=== PATIENT | female | born 1985 | race African-American/Black ===

== ENCOUNTER 2016-09-07 08:53 | Inpatient (IN) ==
[2016-09-07] MEDS ORDERED: ONDANSETRON 4 MG/2 ML VIAL IV PRN ×2 (09:39→13:15)
[2016-09-07] MEDS ORDERED: BUTORPHANOL 2 MG/ML VIAL IV PRN (09:39)
[2016-09-07 10:05] LABS: Basophils % 0.3 % (0.0-0.8); Eosinophils % 0.4 % (0.00-10.9); Hematocrit 33.3 VOL% (35.7-47.0); Hemoglobin 11.7 GM/DL (12.0-16.0); Immature Granulocytes % 1.6 %; Immature Granulocytes Absolute 0.16 #; Lymphocytes # 1.4 10*3/uL (1.4-4.0); Lymphocytes % 14.2 % (21.3-54.2); Mean Corpuscular HGB Conc 35.1 GM/DL (32-36); Mean Corpuscular Hemoglobin 33 PG (27-34); Mean Corpuscular Volume 92.5 FL (87-102); Mean Platelet Volume 10.7 FL (9.6-12.0); Monocytes # 0.6 10*3/uL (0.11-0.8); Monocytes % 6.2 % (1.7-12.7); Neutrophils # 7.7 10*3/uL (1.4-7.4); Neutrophils % 77.3 % (38.7-73.9); Platelet Count 128 T/CUMM (130-400); Red Cell Distribution Width 12.7 % (9.3-17.3)
[2016-09-07] MEDS ORDERED: diphenhydrAMINE 50 MG/1 ML VIAL IV PRN ×2 (10:08)
[2016-09-07] MEDS ORDERED: FAMOTIDINE 20 MG/2 ML VIAL IV ONE (10:08)
[2016-09-07] MEDS ORDERED: CITRIC ACID/SODIUM CITRATE 30 ML UDCUP PO ONE (10:08)
[2016-09-07] MEDS ORDERED: LACTATED RINGERS 1,000 ML IV ONE (10:08)
[2016-09-07] MEDS ORDERED: ONDANSETRON 4 MG/2 ML VIAL IV ONE (10:08)
[2016-09-07] MEDS ORDERED: hydrOXYzine HCL 25 MG/1 ML VIAL IM PRN (10:08)
[2016-09-07] MEDS ORDERED: PROMETHAZINE 25 MG/1 ML VIAL IM ONE (10:08)
[2016-09-07] MEDS ORDERED: ePHEDrine 50 MG/ML AMP IV PRN (10:08)
[2016-09-07 10:13] LABS: Apearance,Urine CLOUDY (Clear); Bacteria,Urine Occasional /HPF (Few); Bilirubin,Urine Negative (Negative); Blood, Urine Small mg/dL (Negative); Glucose,Urine (UA) Negative (Negative); Ketones,Urine 20 mg/dL (Negative); Mucus,Urine Occasional /LPF (Occasional); Nitrite,Urine Negative (Negative); Protein,Urine 30 MG/DL; RBC,Urine 7 /HPF (0-4); Squamous Epithelial Cell,Urine Few /HPF (0-10); Urine Color Yellow (Yellow); Urine Specific Gravity 1.019 (1.001-1.035); Urine Urobilinogen < 2.0 EU/DL (0.2-1.0); WBC,Urine 11 /HPF (0-6)
[2016-09-07] MEDS ORDERED: DEXTROSE 5% LACTATED RINGERS 1,000 ML IV PRN (10:14)
[2016-09-07] MEDS ORDERED: LACTATED RINGERS 1,000 ML IV PRN (10:15)
[2016-09-07] MEDS ORDERED: AMPICILLIN INJ 2,000 MG in SODIUM CHLORIDE 0.9% 100 ML IV SCH (10:30)
[2016-09-07 10:44] LABS: Albumin 2.7 G/DL (3.4-5.0); Osmolality,Calculated 276.7 MOS/KG (273-304); Potassium 3.4 MMOL/L (3.5-5.1); Total Protein 6.2 G/DL (6.4-8.3); Uric Acid 2.3 MG/DL (2.6-6.0)
[2016-09-07] MEDS ORDERED: OXYTOCIN/LR 20 UNIT/1,000 ML BAG IV ONE ×2 (12:30→13:15)
[2016-09-07 12:33] LABS: Bilirubin,Total 0.5 MG/DL (0.2-1.0)
[2016-09-07] MEDS ORDERED: WITCH HAZEL PADS 100/JAR TOP PRN (13:15)
[2016-09-07] MEDS ORDERED: BISACODYL 10 MG SUPP RECTAL PRN (13:15)
[2016-09-07] MEDS ORDERED: BENZOCAINE 20%/MENTHOL 0.5% SPRAY 56 GM CAN TOP PRN (13:15)
[2016-09-07] MEDS ORDERED: HYDROCORTISONE 2.5% RECTAL CREAM 30 GM TUBE TOP PRN (13:15)
[2016-09-07] MEDS ORDERED: LANOLIN 50% CREAM 0.3 OZ TUBE TOP PRN (13:15)
[2016-09-07] MEDS ORDERED: ACETAMINOPHEN 325 MG TABLET PO PRN (13:15)
--- NOTE | 2016-09-07 13:18 | OB/GYN History & Physical ---
History of Present Illness Chief complaint: Labor labor History of present illness: Ms. Vincent is a 31 year old female 001 at 36 weeks gestation with history of type 1 diabetes, hypertension, and HSV positive who presented in active labor. Patient initiated her care with Dr. Dodson and then transferred to Dr. Murray around 32 weeks Home Medications Medication Instructions Recorded Confirmed Type Insulin NPH Human Isophane 28 units SUBCUT AC 08/27/16 09/07/16 History [NovoLIN N] Insulin Regular, Human [NovoLIN R] 7 units SUBCUT BEDTIME 08/27/16 09/07/16 History Insulin Regular, Human [Novolin R] 18 unit IJ AC 08/27/16 09/07/16 History Allergies Allergy/AdvReac Type Severity Reaction Status Date / Time latex AdvReac Unknown ITCHING Verified 09/07/16 10:43 12 point system: reviewed and no additional remarkable complaints except as stated Medical,Surgical,& Family Hx - Medical History Endocrine: History of: Diabetes Mellitus (IDDM) - Family History Family History: Reports;: Family Diabetes (grandmother) Denies;: Family Anesthesia Reaction, Family Cancer, Family Heart Disease, Family Hematology, Family Hypertension, Family Psychiatric Problems, Family Stroke, Additional Family History - Social History Smoking Status: Never smoker Frequency of Alcohol Use: None Type of Drug Use: None 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 General appearance: mild distress - Antepartum / Post Antepartum Exam Cervix - Dilatation: 10 Effacement: 100% Station: +1 Rupture: Spontaneous rupture membranes with light meconium staining Presentation: Vertex Heart Rate: 150s [place]: Contractions every 2-4 minutes Abdomen obstetrics: Present: bowel sounds normal Vagina: Present: normal moisture (No evidence of active herpes lesions) - Head Head exam: Present: normocephalic - ENT ENT exam: Present: normal exam - Neck Neck exam: Present: normal inspection - Respiratory Respiratory exam: Present: clear to auscultation bilaterally - Cardiovascular Cardiovascular exam: Present: regular rate and rhythm - Extremities Exam Extremities exam: Present: normal inspection - Back Exam Back exam: Present: normal inspection - Neurological Exam Neurological exam: Present: alert, oriented X3 - Psychiatric Psychiatric exam: Present: normal affect, normal mood - Skin Skin exam: Present: normal color, warm Assessment and Plan (1) 36 weeks gestation of Status: Acute Current Visit: Yes (2) Insulin dependent diabetes mellitus Status: Acute Assessment and plan: Will monitor Accu-Cheks and manage accordingly Current Visit: Yes (3) Active labor Status: Acute Assessment and plan: Patient admitted with expected vaginal delivery. Current Visit: Yes Results - Labs CBC & BMP: 09/07/16 09:53 09/07/16 09:53 Quality Measures - VTE Contraindication to Pharmacological VTE Prophylaxis: Clinical assessment deems Pt at low risk, no prophalaxis needed
[2016-09-07 13:20] LABS: Apearance,Urine CLEAR (Clear); Bacteria,Urine Occasional /HPF (Few); Bilirubin,Urine Negative (Negative); Blood, Urine Negative (Negative); Glucose,Urine (UA) 150 mg/dL (Negative); Ketones,Urine 80 mg/dL (Negative); Mucus,Urine Occasional /LPF (Occasional); Nitrite,Urine Negative (Negative); Protein,Urine Negative; RBC,Urine 2 /HPF (0-4); Urine Color Yellow (Yellow); Urine Specific Gravity 1.021 (1.001-1.035); Urine Urobilinogen < 2.0 EU/DL (0.2-1.0); WBC,Urine 1 /HPF (0-6)
--- NOTE | 2016-09-07 13:24 | Operative Note ---
Date of procedure: 09/07/16 Procedure Preformed: Patient delivered a liveborn male infant via spontaneous vaginal delivery. Baby 's head was delivered in the OA position. The baby's nose mouth bulb suctioned the perineum. Anterior posterior shoulders followed by the body was delivered with ease. Status post internal after" was doubly clamped and cut. Cord blood was sent. Placenta was delivered spontaneously and intact with three-vessel cord. The uterus was massaged and was found to confirm a well contracted. The patient sustained a left vaginal sidewall laceration which was repaired with 2- 0 chromic. Birthweight []. Apgars 8 9. Baby and mother stable. And the procedure all sponge lap counts correct 2. Surgeon / Physician: Shanon Glaser Post-op diagnosis: same Findings: Liveborn male Specimens: none sent Estimated blood loss: other (50 ml) Condition: stable Anesthesia: epidural Disposition: floor
[2016-09-07] MEDS ORDERED: MEASLES/MUMPS/RUBELLA VACCINE 0.5 ML VIAL SUBCUT ONE (14:00)
[2016-09-07] MEDS ORDERED: DIPH/TET/ACEL PERT BOOSTER VACCINE 0.5 ML VIAL IM ONE (14:00)
[2016-09-07] MEDS ORDERED: RHO(D) IMMUNE GLOBULIN 300 MCG SYRINGE IM ONE (14:00)
[2016-09-07] MEDS ORDERED: GLUCAGON 1 MG VIAL IM PRN ×3 (15:02→17:15)
[2016-09-07] MEDS ORDERED: DEXTROSE 50% 25 GM/50 ML VIAL IV PRN ×3 (15:02→17:15)
[2016-09-07] MEDS: IBUPROFEN 800 MG TABLET PO PRN (16:00)
[2016-09-07] MEDS: INSULIN REGULAR 100 UNIT/ML SUBCUT SCH ×2 (18:59→19:50)
[2016-09-07] MEDS: oxyCODONE/ACETAMINOPHEN 5-325 MG TABLET PO PRN (19:50)
--- NOTE | 2016-09-07 20:10 | Anesthesia Post-Op ---
Anesthesia Post OP - Post Ansesthetic Evaluation Patient seen in post op: Yes Resp: within normal limits CV: within normal limits Mental: within normal limits Temp: within normal limits [id number]: within normal limits Nausea and Vomiting: within normal limits Pain: within normal limits
[2016-09-08] MEDS: fentaNYL 2 MCG/ROPIV 0.2% EPID 150 ML EPIDURAL SCH ×2 (01:22→21:32)
[2016-09-08] MEDS: DOCUSATE SODIUM 100 MG CAPSULE PO SCH ×3 (01:23→21:00)
[2016-09-08] MEDS: INSULIN REGULAR 100 UNIT/ML SUBCUT SCH ×2 (01:24→06:49)
[2016-09-08 05:23] LABS: Basophils # 0.1 10*3/uL (0.0-0.2); Basophils % 0.3 % (0.0-0.8); Eosinophils # 0.1 10*3/uL (0.0-0.87); Eosinophils % 0.6 % (0.00-10.9); Hematocrit 32.6 VOL% (35.7-47.0); Hemoglobin 11.5 GM/DL (12.0-16.0); Immature Granulocytes % 0.8 %; Immature Granulocytes Absolute 0.14 #; Lymphocytes # 2.1 10*3/uL (1.4-4.0); Lymphocytes % 12.7 % (21.3-54.2); Mean Corpuscular HGB Conc 35.3 GM/DL (32-36); Mean Corpuscular Hemoglobin 32 PG (27-34); Mean Corpuscular Volume 90.8 FL (87-102); Mean Platelet Volume 11.2 FL (9.6-12.0); Monocytes # 1.1 10*3/uL (0.11-0.8); Monocytes % 6.8 % (1.7-12.7); Neutrophils % 78.8 % (38.7-73.9); Platelet Count 136 T/CUMM (130-400); Red Blood Count 3.59 MC/CUMM (3.8-5.5); Red Cell Distribution Width 12.7 % (9.3-17.3); White Blood Count 16.5 T/CUMM (4-12)
[2016-09-08] MEDS: IBUPROFEN 800 MG TABLET PO PRN ×2 (06:00→20:00)
[2016-09-08] MEDS ORDERED: INSULIN REGULAR 100 UNIT/ML SUBCUT SCH ×2 (07:30→21:00)
[2016-09-08] MEDS ORDERED: INSULIN NPH 100 UNIT/ML SUBCUT SCH (07:30)
--- NOTE | 2016-09-08 09:37 | OB/GYN Progress Note ---
Assessment and Plan (1) 36 weeks gestation of Status: Acute Current Visit: Yes (2) Insulin dependent diabetes mellitus Status: Acute Assessment and plan: Will monitor Accu-Cheks and manage accordingly Discontinue sliding scale however continue a.m. and p.m. insulin doses. Patient encouraged to ambulate Current Visit: Yes (3) Active labor Status: Acute Assessment and plan: Patient admitted with expected vaginal delivery. Current Visit: Yes (4) Vaginal delivery Status: Acute Assessment and plan: Routine care Current Visit: Yes [facility] - PN: Subj Interval history: No complaints this morning. However per nursing records patient has been taking her own insulin in the room from home without notifying the nurses of which she is actually taking. Patient was counseled that she should immediately discontinue this behavior and that we will continue to monitor her blood sugars accordingly and treat. Exam [facility] - Constitutional Vitals: Vital Signs Temp Pulse Resp BP Pulse Ox 09/08/16 08:00 96.9 F L 59 L 18 107/54 96 09/08/16 06:00 18 09/08/16 04:00 98.1 F 51 L 18 97/46 99 09/08/16 02:00 20 09/08/16 00:00 97.4 F L 69 20 116/64 99 09/07/16 19:36 98.8 F 67 20 107/54 100 09/07/16 18:36 57 L 20 109/64 09/07/16 17:35 56 L 20 117/59 09/07/16 17:05 57 L 20 118/61 09/07/16 16:25 96.6 F L 58 L 20 114/68 09/07/16 12:00 97.4 F L - Antepartum / Post Post Exam Abdomen obstetrics: Present: bowel sounds normal Vagina: Present: normal moisture Uterus exam: Present: normal size, normal contour Anus/Rectum: Present: normal perianal skin - Head Head exam: Present: normocephalic - Neck Neck exam: Present: normal inspection - Respiratory Respiratory exam: Present: clear to auscultation bilaterally - Cardiovascular Cardiovascular exam: Present: regular rate and rhythm - GI/Abdominal GI/Abdominal exam: Present: soft - Extremities Exam Extremities exam: Present: normal inspection - Back Exam Back exam: Present: normal inspection - Neurological Exam Neurological exam: Present: alert, oriented X3 - Psychiatric Psychiatric exam: Present: normal affect, normal mood - Skin Skin exam: Present: normal color, warm Results - Labs CBC & BMP: 09/08/16 05:13 09/07/16 09:53
[2016-09-08] MEDS: oxyCODONE/ACETAMINOPHEN 5-325 MG TABLET PO PRN ×2 (10:55→20:00)
[2016-09-08] MEDS ORDERED: ceFAZolin 2,000 MG in PREMIX 1 EACH IV ONE (19:16)
[2016-09-09] MEDS ORDERED: INSULIN NPH 100 UNIT/ML SUBCUT SCH (07:30)
[2016-09-09] MEDS ORDERED: INSULIN REGULAR 100 UNIT/ML SUBCUT SCH (07:30)
[2016-09-09 08:03] VITALS: BP 116/70
[2016-09-09] MEDS: DOCUSATE SODIUM 100 MG CAPSULE PO SCH (08:17)
[2016-09-09] MEDS: oxyCODONE/ACETAMINOPHEN 5-325 MG TABLET PO PRN (08:25)
--- NOTE | 2016-09-09 10:14 | Discharge Summary ---
Hospital Course - Hospital Course Hospital Course: This is a 31-year-old female who presented in active labor at term. She has a history of insulin-dependent diabetes for which she has been consistently noncompliant both with her meds and choice of physician. Patient is Dr. burns from 1 OB to the next with very poor control overall of her condition. she remained noncompliant with both her food consumption as well as her medication dosage. Patient was noted to have been self prescribing her insulin without nursing notification in the room. Patient is currently bottlefeeding with some interest in breast-feeding and plans for control pills for contraception. She sees Dr. Altman for diabetes management. Diagnosis - Discharge Diagnosis (1) 36 weeks gestation of Status: Acute (2) Insulin dependent diabetes mellitus Status: Acute (3) Active labor Status: Acute (4) Vaginal delivery Status: Acute Specialty Discharge - Follow Up or Referrals Follow up with: Cortney Murray DO [Physician] - Discharge Plan - Discharge Data Disposition: Disch To Home/Self Care Condition at Discharge: Stable Discharge Diet: diabetic diet Activity: resume usual activities as tolerated (Pelvic rest) Hygiene: may shower Weight Bearing at Discharge: weight bear as tolerated Driving: no restrictions Contact your physician if you experience:: fever over 101, Difficulty voiding, Redness or swelling, Nausea/Vomiting, Shortness of breath, Bleeding, pain uncontrolled by pain medications - Discharge Medications New Ibuprofen Tab [Motrin Tab] 800 mg PO Q6H PRN #30 tablet PRN Reason: Pain Moderate (4-7) No Action Insulin NPH Human Isophane [NovoLIN N] 28 units SUBCUT AC Insulin Regular, Human [Novolin R] 18 unit IJ AC Insulin Regular, Human [NovoLIN R] 7 units SUBCUT BEDTIME - Follow Up or Referral Follow Up: Cortney Murray DO [Physician] - 1 Week - Forms/Instructions Instructions: Perineal Care (DC), Diabetes Mellitus Type 1 in Adults (DC), Diabetic Hypoglycemia (DC), Vaginal Delivery (DC), Bleeding (DC) Exam - Constitutional Vitals: Period Temp Pulse Resp BP Sys/[place] Pulse Ox Last 24 Hr 97 F-98.7 F 56-70 16-19 97-118/53-75 97-99 General appearance: no acute distress - Head Head exam: Present: normocephalic - Neck Neck exam: Present: normal inspection - Respiratory Respiratory exam: Present: clear to auscultation bilaterally - Cardiovascular Cardiovascular exam: Present: regular rate and rhythm - GI/Abdominal GI/Abdominal exam: Present: normal bowel sounds, soft - Extremities Exam Extremities exam: Present: normal inspection - Back Exam Back exam: Present: normal inspection - Neurological Exam Neurological exam: Present: alert, oriented X3 - Psychiatric Psychiatric exam: Present: normal affect, normal mood - Skin Skin exam: Present: normal color, warm Discharge Results Labs on day of discharge: Labs from last 24 hours 09/09/16 09/09/16 09/09/16 07:51 05:52 05:27 POC Glucose 125 H 92 47 L* 09/08/16 09/08/16 09/08/16 19:41 17:39 17:13 POC Glucose 198 H 70 L 53 L 09/08/16 09/08/16 09/08/16 15:04 12:01 11:48 POC Glucose 75 95 69 L 09/08/16 09/08/16 09/08/16 11:26 11:08 10:49 POC Glucose 33 L* 55 L 61 L DS: Provider Date of admission: 09/07/16 09:39 Primary care physician: Sin Altman Attending physician on admission: Cortney Murray DO Consults: 09/07/16 09:39 Consult to Anesthesiology [CONS] Routine Consulting Provider: Reason for Anesthesiology: Epidural Consult Comment: Epidural for pain managment 09/07/16 13:15 Consult to Test Operator [CONS] Routine Consult Test Operator: Breast Feeding Discharging clinician: Shanon Glaser MD
== END 2016-09-09 14:00 | disposition home or self-care (01) | DRG 560 ==
LOC: N.LDOUT 08:53 → N.LD 08:55 → N.OB 15:49
PROVIDERS: ADMIT Obstetrics & Gynecology; ATTEND Obstetrics & Gynecology

== ENCOUNTER 2018-08-25 09:43 | Inpatient (IN) ==
[2018-08-25] MEDS ORDERED: BUTORPHANOL 1 MG/ML VIAL ONE (10:13)
[2018-08-25] MEDS ORDERED: OXYTOCIN/LR 20 UNIT/1,000 ML BAG IV ONE ×3 (10:13→10:57)
[2018-08-25] MEDS ORDERED: BUTORPHANOL 2 MG/ML VIAL IV PRN (10:21)
[2018-08-25] MEDS ORDERED: BUTORPHANOL 1 MG/ML VIAL IV PRN (10:21)
[2018-08-25] MEDS ORDERED: ONDANSETRON 4 MG/2 ML VIAL IV PRN ×2 (10:21→10:57)
[2018-08-25] MEDS ORDERED: LACTATED RINGERS 1,000 ML IV SCH (10:30)
[2018-08-25] MEDS ORDERED: LIDOCAINE 1% 50 ML VIAL ONE (10:37)
[2018-08-25 10:44] LABS: Basophils % 0.5 % (0.0-0.8); Eosinophils # 0.1 10*3/uL (0.0-0.87); Hematocrit 34.9 VOL% (35.7-47.0); Hemoglobin 11.1 GM/DL (12.0-16.0); Immature Granulocytes % 0.9 %; Immature Granulocytes Absolute 0.05 #; Lymphocytes # 1.4 10*3/uL (1.4-4.0); Lymphocytes % 24.3 % (21.3-54.2); Mean Corpuscular HGB Conc 31.8 GM/DL (32-36); Mean Corpuscular Volume 93.3 FL (87-102); Mean Platelet Volume 10.9 FL (9.6-12.0); Monocytes % 11.5 % (1.7-12.7); Neutrophils % 61.8 % (38.7-73.9); Platelet Count 144 T/CUMM (130-400); Red Blood Count 3.74 MC/CUMM (3.8-5.5); Red Cell Distribution Width 12.7 % (9.3-17.3); White Blood Count 5.7 T/CUMM (4-12)
[2018-08-25 10:57] LABS: Albumin 2.6 G/DL (3.4-5.0); Bilirubin,Total 0.8 MG/DL (0.2-1.0); Calcium 8.5 MG/DL (8.5-10.1); Osmolality,Calculated 272.7 MOS/KG (273-304); Total Protein 6.7 G/DL (6.4-8.3); Uric Acid 2.6 MG/DL (2.6-6.0)
[2018-08-25] MEDS ORDERED: MEASLES/MUMPS/RUBELLA VACCINE 0.5 ML VIAL SUBCUT ONE (10:57)
[2018-08-25] MEDS ORDERED: LANOLIN 50% CREAM 0.3 OZ TUBE TOP PRN (10:57)
[2018-08-25] MEDS ORDERED: WITCH HAZEL PADS 100/JAR TOP PRN (10:57)
[2018-08-25] MEDS ORDERED: RHO(D) IMMUNE GLOBULIN 300 MCG SYRINGE IM ONE (10:57)
[2018-08-25] MEDS ORDERED: HYDROCORTISONE 2.5% RECTAL CREAM 30 GM TUBE TOP PRN (10:57)
[2018-08-25] MEDS ORDERED: ACETAMINOPHEN 325 MG TABLET PO PRN (10:57)
[2018-08-25] MEDS ORDERED: BISACODYL 10 MG SUPP RECTAL PRN (10:57)
[2018-08-25] MEDS ORDERED: DIPH/TET/ACEL PERT BOOSTER VACCINE 0.5 ML VIAL IM ONE (10:57)
[2018-08-25] MEDS ORDERED: BENZOCAINE 20%/MENTHOL 0.5% SPRAY 56 GM CAN TOP PRN (10:57)
[2018-08-25] MEDS ORDERED: INSULIN LISPRO 100 UNIT/ML SUBCUT ONE ×2 (11:49→17:01)
[2018-08-25] MEDS ORDERED: INSULIN GLARGINE 100 UNIT/ML SUBCUT ONE (11:53)
[2018-08-25] MEDS: IBUPROFEN 800 MG TABLET PO PRN ×2 (12:38→20:20)
[2018-08-25] MEDS ORDERED: DEXTROSE 50% 25 GM/50 ML VIAL IV PRN (14:27)
[2018-08-25] MEDS: oxyCODONE/ACETAMINOPHEN 5-325 MG TABLET PO PRN ×2 (16:22→23:52)
[2018-08-25] MEDS: INSULIN GLARGINE 100 UNIT/ML SUBCUT SCH (17:24)
[2018-08-25] MEDS: DOCUSATE SODIUM 100 MG CAPSULE PO SCH (20:20)
[2018-08-26 04:38] LABS: Basophils % 0.5 % (0.0-0.8); Eosinophils # 0.1 10*3/uL (0.0-0.87); Eosinophils % 1.6 % (0.00-10.9); Hematocrit 30.8 VOL% (35.7-47.0); Hemoglobin 9.9 GM/DL (12.0-16.0); Immature Granulocytes % 0.6 %; Immature Granulocytes Absolute 0.05 #; Lymphocytes % 23.8 % (21.3-54.2); Mean Corpuscular HGB Conc 32.1 GM/DL (32-36); Mean Corpuscular Volume 91.9 FL (87-102); Mean Platelet Volume 10.6 FL (9.6-12.0); Monocytes % 14.2 % (1.7-12.7); Neutrophils % 59.3 % (38.7-73.9); Platelet Count 147 T/CUMM (130-400); Red Blood Count 3.35 MC/CUMM (3.8-5.5); Red Cell Distribution Width 12.7 % (9.3-17.3); White Blood Count 8.4 T/CUMM (4-12)
[2018-08-26] MEDS: oxyCODONE/ACETAMINOPHEN 5-325 MG TABLET PO PRN ×2 (07:29→16:13)
[2018-08-26] MEDS: INSULIN LISPRO 100 UNIT/ML SUBCUT SCH ×3 (09:32→19:12)
[2018-08-26] MEDS: INSULIN GLARGINE 100 UNIT/ML SUBCUT SCH ×2 (09:32→20:31)
[2018-08-26] MEDS ORDERED: INSULIN LISPRO 100 UNIT/ML SUBCUT SCH ×2 (12:00→18:00)
[2018-08-26] MEDS: DOCUSATE SODIUM 100 MG CAPSULE PO SCH ×2 (12:48→20:30)
[2018-08-26] MEDS: IBUPROFEN 800 MG TABLET PO PRN ×2 (13:30→21:46)
[2018-08-26] MEDS ORDERED: INSULIN GLARGINE 100 UNIT/ML SUBCUT SCH (17:00)
[2018-08-27] MEDS ORDERED: GLUCOSE GEL 15 GM TUBE PO ONE ×2 (00:01→00:04)
[2018-08-27] MEDS: INSULIN LISPRO 100 UNIT/ML SUBCUT SCH ×4 (00:07→12:57)
[2018-08-27] MEDS: GLUCAGON 1 MG VIAL IM PRN ×2 (04:05→22:37)
[2018-08-27] MEDS: IBUPROFEN 800 MG TABLET PO PRN ×2 (06:22→18:39)
[2018-08-27] MEDS: DOCUSATE SODIUM 100 MG CAPSULE PO SCH ×2 (08:25→21:02)
[2018-08-27] MEDS: INSULIN GLARGINE 100 UNIT/ML SUBCUT SCH (10:48)
[2018-08-27] MEDS: oxyCODONE/ACETAMINOPHEN 5-325 MG TABLET PO PRN ×3 (12:01→21:37)
[2018-08-27] MEDS ORDERED: INSULIN LISPRO 100 UNIT/ML SUBCUT SCH ×5 (12:30→18:00)
[2018-08-27] MEDS ORDERED: DEXTROSE 50% 25 GM/50 ML VIAL IV PRN (14:14)
[2018-08-27] MEDS ORDERED: GLUCAGON 1 MG VIAL IM PRN (14:14)
[2018-08-27] MEDS: INSULIN REGULAR 100 UNIT/ML SUBCUT SCH ×3 (16:25→21:36)
[2018-08-27] MEDS ORDERED: INSULIN GLARGINE 100 UNIT/ML SUBCUT SCH (18:00)
[2018-08-28] MEDS: IBUPROFEN 800 MG TABLET PO PRN (03:10)
[2018-08-28] MEDS ORDERED: INSULIN LISPRO 100 UNIT/ML SUBCUT SCH ×2 (07:30)
[2018-08-28] MEDS ORDERED: INSULIN GLARGINE 100 UNIT/ML SUBCUT SCH ×2 (07:30→17:00)
[2018-08-28] MEDS: INSULIN REGULAR 100 UNIT/ML SUBCUT SCH ×4 (08:17→11:50)
[2018-08-28] MEDS: DOCUSATE SODIUM 100 MG CAPSULE PO SCH (08:41)
[2018-08-28] MEDS: oxyCODONE/ACETAMINOPHEN 5-325 MG TABLET PO PRN (08:58)
[2018-08-28 11:53] VITALS: BP 107/61
== END 2018-08-28 15:40 | disposition home or self-care (01) | DRG 560 ==
LOC: N.LDOUT 09:43 → N.LD 09:46 → N.OB 08-26 07:05
PROVIDERS: ADMIT Obstetrics & Gynecology; ATTEND Obstetrics & Gynecology